=== PATIENT | female | born 1980 | race Caucasian/White ===

== ENCOUNTER 2021-04-15 19:22 | Emergency (ER) | payer OTHER ==
[~2021-04-15] VITALS: Ht 165.1 cm; Wt 63.5 kg
[~2021-04-15 19:22] MED LIST: FLUO-387 PO; LAM25 PO; LORA-476 PO; QUET100T PO
[2021-04-15 19:33] VITALS: BP 150/98
[2021-04-15 20:53] LABS: BASOPHILS % (AUTO) 0.4 % (0.0-2.0); EOSINOPHILS % (AUTO) 0.6 % (0.0-4.0); HEMATOCRIT 42.3 % (36-48); HEMOGLOBIN 14.2 g/dL (12.0-16.0); LYMPHOCYTES # (AUTO) 1.7 K/uL (2.5-16.5); LYMPHOCYTES % (AUTO) 24.6 % (20.5-51.1); MEAN CORPUSCULAR HEMOGLOBIN 33 pg (27-31); MEAN CORPUSCULAR HGB CONC 34 g/dL (33-37); MEAN CORPUSCULAR VOLUME 97.5 fL (80-94); MONOCYTES # (AUTO) 0.5 K/uL (0.8-1.0); MONOCYTES % (AUTO) 7.6 % (1.7-9.3); NEUTROPHILS # (AUTO) 4.7 K/uL (1.8-7.7); NEUTROPHILS % (AUTO) 66.8 % (42.2-75.2); PLATELET COUNT (AUTO) 227 K/uL (140-450); RED BLOOD CELL COUNT(AUTO) 4.34 MIL/uL (4.20-5.40)
[2021-04-15 20:59] LABS: APPEARANCE,URINE CLEAR (CLEAR); BILIRUBIN,URINE NEGATIVE (NEGATIVE); BLOOD, URINE 1+ (NEGATIVE); COLOR,URINE YELLOW (YELLOW); LEUKOCYTE ESTERASE ,URINE NEGATIVE (NEGATIVE); NITRITE, URINE NEGATIVE (NEGATIVE); UGLUCOSE NEGATIVE (NEGATIVE)
[2021-04-15 21:05] LABS: ANION GAP 14.9 (8-16); CARBON DIOXIDE 24.4 mmol/L (21-32); CREATININE 0.8 mg/dL (0.6-1.3); POTASSIUM 3.3 mmol/L (3.5-5.1)
[2021-04-15] MEDS ORDERED: KETOROLAC 15 MG/ML VIAL IVP ONE (23:20)
[2021-04-16 00:04] VITALS: BP 119/77
== END 2021-04-16 00:04 | disposition home or self-care (01) ==
LOC: MED 19:22
DX: R10.30 Lower abdominal pain, unspecified (principal); Z79.899 Other long term (current) drug therapy
CPT/HCPCS: 36415; 76801; 80048; 81001; 84702; 85025; 86900; 86901; 87086; 96374; 99284; J1885; Q0092

== ENCOUNTER 2024-03-19 08:10 | Emergency (ER) | payer OTHER ==
[~2024-03-19] VITALS: Ht 165.1 cm; Wt 70.8 kg
[2024-03-19 08:30] VITALS: BP 132/82; PULSE 74; RESP 16; TEMP 97.2; O2SAT 99
[2024-03-19] MEDS ORDERED: DICYCLOMINE HCL LIQUID 10 MG/5 ML UDC ONE (08:53)
[2024-03-19] MEDS ORDERED: ALUMINUM HYD/MAG/SIMETHICONE 30 ML UDC ONE (08:53)
[2024-03-19] MEDS: DICYCLOMINE HCL LIQUID 20 MG, ALUMINUM HYD/MAG/SIMETHICONE 30 ML, LIDOCAINE VISCOUS 2% ... PO ONE (08:57)
== END 2024-03-19 09:26 | disposition home or self-care (01) ==
LOC: MED 08:10
DX: R10.13 Epigastric pain (principal); Z90.49 Acquired absence of other specified parts of digestive tract; Z79.899 Other long term (current) drug therapy
CPT/HCPCS: 81025; 99283